=== PATIENT | female | born 1945 | race Caucasian/White ===

== ENCOUNTER 2018-06-25 12:37 | Emergency (ER) | payer MEDICARE, MEDICAID ==
[~2018-06-25] VITALS: Ht 160 cm; Wt 75.0 kg
[2018-06-25] MEDS ORDERED: BLOOD PRESSURE PO (12:58)
[2018-06-25] MEDS ORDERED: KETOROLAC TROMETHAMINE 30 MG/ML VIAL IM ONE (15:15)
[2018-06-25] MEDS ORDERED: AMOXICILLIN TRIHYDRATE 250 MG CAPSULE PO ONE (15:15)
[2018-06-25] MEDS ORDERED: NEOMYCIN/POLYMYXIN B/HYDROCORT 10 ML OTIC SOLUTION AS ONE (15:30)
[2018-06-25] MEDS ORDERED: LIDOCAINE HCL/PF 1% 2 ML VIAL IM ONE (15:30)
[2018-06-25] MEDS ORDERED: CefTRIAXone SODIUM 1 GM/VIAL IM ONE (15:30)
[2018-06-25 16:00] VITALS: BP 139/68
== END 2018-06-25 16:35 | disposition home or self-care (01) ==
LOC: EMS 12:37
DX: H66.012 Acute suppurative otitis media with spontaneous rupture of ear drum, left ear (principal); H60.92 Unspecified otitis externa, left ear; I10 Essential (primary) hypertension
CPT/HCPCS: 96372; 99284; J0696; J1885; J3490

== ENCOUNTER 2019-05-29 15:01 | Emergency (ER) | payer MEDICARE, MEDICAID ==
[~2019-05-29] VITALS: Ht 149.9 cm; Wt 58.6 kg
[~2019-05-29 15:01] MED LIST: AMLO10TA7 PO; ATOR40TA28 PO; CALC25 PO; CARV12 PO; HYDR25TA84 PO; LEVO125 PO; SODI650T PO
[2019-05-29] MEDS ORDERED: BUME1TAB34 PO (15:11)
[2019-05-29] MEDS ORDERED: LOPE2 PO (15:11)
[2019-05-29] MEDS ORDERED: ACETAMINOPHEN 500 MG TABLET PO ONE (18:00)
[2019-05-29 18:29] LABS: BASOPHILS % (AUTO) 0.4 % (0.0-2.0); EOSINOPHILS % (AUTO) 0.6 % (1.0-6.0); HEMATOCRIT 33.8 % (36-46); LYMPHOCYTES # (AUTO) 1.6 K/uL (1.0-4.8); LYMPHOCYTES % (AUTO) 11.6 % (22.0-44.0); MEAN CORPUSCULAR HEMOGLOBIN 32.3 pg (26.0-34.0); MEAN CORPUSCULAR HGB CONC 32.7 G/dL (31.0-37.0); MEAN CORPUSCULAR VOLUME 99 fL (80-100); MONOCYTES # (AUTO) 1.2 K/uL (0.1-1.0); MONOCYTES % (AUTO) 8.9 % (2.0-9.0); NEUTROPHILS # (AUTO) 10.7 K/uL (1.8-7.7); NEUTROPHILS % (AUTO) 78.5 % (40.0-70.0); PLATELET COUNT (AUTO) 197 K/uL (150-450); RED BLOOD CELL COUNT(AUTO) 3.42 MIL/uL (4.00-5.20); RED CELL DISTRIBUTION WIDTH 14.9 % (11.5-14.5)
[2019-05-29 18:55] LABS: CALCIUM, TOTAL 9.8 mg/dL (8.8-10.5); CREATININE 3.51 mg/dL (0.60-1.30); POTASSIUM 4.8 mmol/L (3.5-5.1)
[2019-05-29 19:01] LABS: ALBUMIN 3.7 g/dL (3.4-5.0); BILIRUBIN,TOTAL 0.5 mg/dL (0.1-1.0); TOTAL PROTEIN, SERUM 7.5 g/dL (6.4-8.2)
[2019-05-29] MEDS ORDERED: ACETAMINOPHEN 325 MG TABLET PO ONE (22:15)
[2019-05-29 23:45] LABS: APPEARANCE,URINE CLOUDY (CLEAR); BILIRUBIN,URINE NEGATIVE (NEGATIVE); GLUCOSE, URINE (UA) NEGATIVE (NEGATIVE); KETONES,URINE NEGATIVE (NEGATIVE); LEUKOCYTE ESTERASE ,URINE MODERATE (NEGATIVE); NITRATE,URINE NEGATIVE (NEGATIVE); OCCULT BLOOD,URINE NEGATIVE (NEGATIVE); PROTEIN,URINE SEE CONFIRM (NEGATIVE)
[2019-05-29 23:52] LABS: BACTERIA,URINE Moderate /HPF (None Seen); RBC,URINE None Seen /HPF (0-2); WBC,URINE >100 /HPF (0-5)
[2019-05-29 23:53] LABS: SQUAMOUS EPITHELIAL CELL,UR Few /LPF (None Seen); SULFOSALICYLIC ACID,URINE 1+ (Negative)
[2019-05-30] MEDS ORDERED: KETOROLAC TROMETHAMINE 30 MG/ML VIAL IVP ONE (00:15)
[2019-05-30] MEDS ORDERED: LEVOFLOXACIN 500 MG TABLET PO ONE (00:15)
[2019-05-30] MEDS ORDERED: CefTRIAXone 1 GM/DEXTROSE 50 ML IV ONE (00:15)
[2019-05-30 01:35] VITALS: BP 128/64
== END 2019-05-30 02:00 | disposition home or self-care (01) ==
LOC: EMS 15:02
DX: M17.11 Unilateral primary osteoarthritis, right knee (principal); R60.0 Localized edema; N39.0 Urinary tract infection, site not specified; R53.1 Weakness; I13.0 Hypertensive heart and chronic kidney disease with heart failure and stage 1 through stage 4 chronic kidney disease, or unspecified chronic kidney disease; N18.4 Chronic kidney disease, stage 4 (severe); I50.9 Heart failure, unspecified; I25.10 Atherosclerotic heart disease of native coronary artery without angina pectoris; Z79.899 Other long term (current) drug therapy
CPT/HCPCS: 29505; 36415; 71045; 73562; 80053; 81001; 83880; 84484; 85025; 87077; 87086; 87186; 93005; 93970; 96365; 96375; 99285; J0696; J1885